=== PATIENT | male | born 1940 | race Caucasian/White ===

== ENCOUNTER → 2018-05-30 | Outpatient (CLI) | payer OTHER ==
[~2018-05-30] MED LIST: LIDOCAINE 1% 300 MG/30 ML SDV ONE
[2018-05-30 09:23] LABS: INR 1.07 (0.83-1.16); PROTIME(PATIENT) 14.1 SEC (12.0-15.0)
== END ==
LOC: FIMAGING 08:09
PROVIDERS: ATTEND Psychiatry & Neurology Neurology
PROC: 009U3ZX Drainage of Spinal Canal, Percutaneous Approach, Diagnostic (ICD-10-PCS; principal; 2018-05-30)
DX: F03.90 Unspecified dementia, unspecified severity, without behavioral disturbance, psychotic disturbance, mood disturbance, and anxiety (principal); G25.9 Extrapyramidal and movement disorder, unspecified
CPT/HCPCS: 82784-90; 83916-90

== ENCOUNTER → 2018-06-27 | Outpatient (CLI) | payer OTHER ==
--- NOTE | 2018-06-27 12:52 | CPEEG ---
[f rep st] ELECTROENCEPHALOGRAM EEG. DATE OF STUDY: 06/27/2018 INTERPRETATION: This EEG was technically difficult due to significant electrode artifacts. This EEG is essentially normal. There were no potentially epileptogenic abnormalities present during the awake or sleep recordings. There were multiple episodes of lip-smacking noted by the technologist without EEG correlate. This w ould be consistent with nonepileptic symptoms. REPORT: This EEG contains 9 to 10 Hz alpha activity during maximal alertness. During maximal alertn ess, the EEG background was essentially normal. The patient intermittently became drowsy and there w as some theta slowing present in the background, which would be consistent with state of consciousnes s and age. There was no abnormal epileptiform activation during drowsiness or during times of arousa l. There was also significant movement and electrode artifacts that obscured portions of the tracing . /[id number]/MODL
== END ==
LOC: FCPNEURO 07:38
PROVIDERS: ATTEND Psychiatry & Neurology Neurology
DX: I77.6 Arteritis, unspecified (principal); R41.89 Other symptoms and signs involving cognitive functions and awareness

== ENCOUNTER → 2018-08-02 | Outpatient (CLI) | payer OTHER ==
[2018-08-02 09:59] LABS: INR 1.08 (0.83-1.16); PROTIME(PATIENT) 13.6 SEC (12.0-15.0)
== END ==
LOC: FIMAGING 09:01
PROVIDERS: ATTEND Psychiatry & Neurology Neurology
DX: F03.90 Unspecified dementia, unspecified severity, without behavioral disturbance, psychotic disturbance, mood disturbance, and anxiety (principal); Z12.89 Encounter for screening for malignant neoplasm of other sites